=== PATIENT | male | born 1980 | race African-American/Black ===

== ENCOUNTER 2018-04-06 11:17 | Inpatient (IN) | payer MEDICARE, MEDICAID ==
[~2018-04-06] VITALS: Ht 182.9 cm; Wt 111.6 kg
[2018-04-06] MEDS ORDERED: NALOXONE HCL 1 MG/ML 2ML VIAL ONE (11:56)
[2018-04-06] MEDS ORDERED: SODIUM CHLORIDE 0.9% 1,000 ML IV ONE (12:00)
[2018-04-06] MEDS ORDERED: LEVETIRACETAM 1000MG/100ML 100 ML IV ONE (12:15)
[2018-04-06] MEDS ORDERED: LORAZEPAM 2MG/ML CPJ IV ONE (12:15)
[2018-04-06 12:35] LABS: CHLORIDE 106 mEq/L (98-107)
[2018-04-06 12:39] LABS: ETHANOL BLOOD < 10 mg/dL
[2018-04-06 12:49] LABS: BASOPHILS % 0.4 % (0.0-2.0); EOSINOPHILS % 7.1 % (0.0-5.0); HEMOGLOBIN. 13.4 g/dL (14.0-18.0); LYMPHOCYTES % 19.7 % (20.0-50.0); MEAN CORPUSCULAR HEMOGLOBIN 26.4 pg (28.0-32.0); MEAN PLATELET VOLUME 8.8 fl (7.4-10.4); MONOCYTES % 13.6 % (2.0-8.0); NEUTROPHILS % 59.2 % (40.0-76.0); PLATELET 302 x1000/uL (130-400); RED BLOOD CELL COUNT 5.06 mill/uL (4.7-6.1); RED CELL DISTRIBUTION WIDTH 15.8 % (11.6-14.6)
[2018-04-06] MEDS ORDERED: LACTULOSE 20G/30ML UDC PO ONE (14:00)
[2018-04-06 14:28] LABS: CLARITY URINE CLOUDY (CLEAR); COLOR URINE YELLOW (YELLOW); KETONES URINE TRACE (NEGATIVE); LEUKOCYTE ESTERASE URINE NEGATIVE (NEGATIVE); NITRITE URINE NEGATIVE (NEGATIVE); OCCULT BLOOD URINE 1+ (NEGATIVE); PROTEIN URINE 3+ (NEGATIVE); SPECIFIC GRAVITY URINE 1.016 (1.005-1.030)
[2018-04-06 15:00] LABS: *AMPHETAMINES SCREEN URINE PRESUMTIVE POSITIVE (NEGATIVE); *BARBITURATES SCREEN URINE NEGATIVE (NEGATIVE)
[2018-04-06 15:01] LABS: *BENZODIAZEPINES SCREEN URINE NEGATIVE (NEGATIVE); *COCAINE SCREEN URINE NEGATIVE (NEGATIVE); CANNABINOID URINE SCREEN PRESUMTIVE POSITIVE (NEGATIVE); METHADONE URINE SCREEN NEGATIVE (NEGATIVE); OPIATES URINE SCREEN NEGATIVE (NEGATIVE); PHENCYCLIDINE URINE SCREEN NEGATIVE (NEGATIVE)
[2018-04-06] MEDS ORDERED: GUAIFENESIN 200MG/10ML SUGAR FREE UDC PO PRN (16:15)
[2018-04-06] MEDS ORDERED: LORAZEPAM 2MG/ML CPJ IV PRN ×2 (16:15→18:45)
[2018-04-06] MEDS ORDERED: HYDROMORPHONE HCL/PF 2MG/ML CPJ IV PRN (16:15)
[2018-04-06] MEDS ORDERED: ACETAMINOPHEN 325MG TABLET PO PRN (16:15)
[2018-04-06] MEDS ORDERED: HYDROCODONE/ACETAMINOPHEN 5/325MG TABLET PO PRN (16:15)
[2018-04-06] MEDS ORDERED: DOCUSATE SODIUM 100MG CAPSULE PO PRN (16:15)
[2018-04-06] MEDS ORDERED: CLONIDINE 0.1MG TABLET PO PRN (16:15)
[2018-04-06] MEDS ORDERED: HYDRALAZINE 20MG/ML VIAL IV PRN (16:15)
[2018-04-06] MEDS ORDERED: DIPHENHYDRAMINE 50MG/ML VIAL IV PRN (16:15)
[2018-04-06] MEDS ORDERED: MAGNESIUM/ALUMINUM HYDROXIDE/SIMETHICONE 30ML UDC PO PRN (16:15)
[2018-04-06] MEDS ORDERED: ONDANSETRON HCL 4MG/2ML INJ IV PRN (16:15)
[2018-04-06] MEDS ORDERED: IPRATROPIUM/ALBUTEROL 0.5-3(2.5)MG/3ML NEB INH PRN (16:15)
[2018-04-06] MEDS ORDERED: NA PHOS,M-B/NA PHOS,DI-BA ENEMA 118ML PR PRN (16:15)
[2018-04-06] MEDS ORDERED: LORA-250 MT (17:33)
[2018-04-06] MEDS ORDERED: PHEN100C4 PO (17:33)
[2018-04-06] MEDS ORDERED: KEPP500 MT (17:33)
[2018-04-06] MEDS ORDERED: LAMC5 MT (17:33)
[2018-04-06] MEDS ORDERED: ELVI1TAB3 MT (17:35)
[2018-04-06 17:37] VITALS: BP 126/63
[2018-04-06 17:42] VITALS: BP 126/63
[2018-04-06] MEDS: DEXT 5%/0.45% NACL 1000ML 1,000 ML IV SCH (18:31)
[2018-04-06 20:00] VITALS: BP 118/58
[2018-04-06] MEDS ORDERED: POTASSIUM CHLORIDE 20MEQ TABLET SR PO NR (21:00)
[2018-04-06] MEDS: SODIUM CHLORIDE 0.9% INJ 3ML FLUSH IVF SCH (21:19)
[2018-04-06 22:00] VITALS: BP 151/72
[2018-04-07] VITALS (12 sets, daily range): BP systolic 114–139; BP diastolic 33–92
[2018-04-07 00:43] LABS: CREATINE KINASE 499 IU/L (39-308); CREATINE KINASE MB FRACTION 2.1 ng/mL (0.5-3.6)
[2018-04-07] MEDS: DEXT 5%/0.45% NACL 1000ML 1,000 ML IV SCH ×3 (02:15→23:05)
[2018-04-07 05:47] LABS: CHLORIDE 107 mEq/L (98-107)
[2018-04-07 05:55] LABS: CREATINE KINASE 457 IU/L (39-308)
[2018-04-07 05:58] LABS: CREATINE KINASE MB FRACTION 1.8 ng/mL (0.5-3.6)
[2018-04-07] MEDS: SODIUM CHLORIDE 0.9% INJ 3ML FLUSH IVF SCH ×3 (06:06→21:25)
[2018-04-07 06:18] LABS: BASOPHILS % 0.3 % (0.0-2.0); EOSINOPHILS % 8.6 % (0.0-5.0); HEMOGLOBIN. 11.6 g/dL (14.0-18.0); LYMPHOCYTES % 16.9 % (20.0-50.0); MEAN CORPUSCULAR HEMOGLOBIN 26.4 pg (28.0-32.0); MEAN CORPUSCULAR VOLUME 81.7 fL (80.0-94.0); MEAN PLATELET VOLUME 8.1 fl (7.4-10.4); MONOCYTES % 13.3 % (2.0-8.0); NEUTROPHILS % 60.9 % (40.0-76.0); PLATELET 255 x1000/uL (130-400); RED BLOOD CELL COUNT 4.41 mill/uL (4.7-6.1); RED CELL DISTRIBUTION WIDTH 15.2 % (11.6-14.6)
[2018-04-07] MEDS: LEVETIRACETAM 500MG TABLET PO SCH (21:25)
[2018-04-08] VITALS (10 sets, daily range): BP systolic 109–153; BP diastolic 64–84
[2018-04-08] MEDS: SODIUM CHLORIDE 0.9% INJ 3ML FLUSH IVF SCH ×2 (06:14→13:00)
[2018-04-08] MEDS: LEVETIRACETAM 500MG TABLET PO SCH (08:14)
[2018-04-08] MEDS: DEXT 5%/0.45% NACL 1000ML 1,000 ML IV SCH (08:14)
== END 2018-04-08 17:47 | disposition left against medical advice (07) | DRG 101 ==
LOC: ER 11:17 → 3WST 14:27 → EDBEDREQ 14:30 → EDBEDREQSVC 14:30 → ENRESERV 14:42
PROVIDERS: ADMIT Internal Medicine; ATTEND Internal Medicine
PROC: 4A00X4Z Measurement of Central Nervous Electrical Activity, External Approach (ICD-10-PCS; principal; 2018-04-08)
DX: G40.409 Other generalized epilepsy and epileptic syndromes, not intractable, without status epilepticus (principal); E46 Unspecified protein-calorie malnutrition; E86.0 Dehydration; Z53.21 Procedure and treatment not carried out due to patient leaving prior to being seen by health care provider; I10 Essential (primary) hypertension; F15.90 Other stimulant use, unspecified, uncomplicated; F16.90 Hallucinogen use, unspecified, uncomplicated; F12.90 Cannabis use, unspecified, uncomplicated; F17.210 Nicotine dependence, cigarettes, uncomplicated; Z91.041 Radiographic dye allergy status; Z68.33 Body mass index [BMI] 33.0-33.9, adult; Z79.899 Other long term (current) drug therapy
CPT/HCPCS: 36415; 71045; 80305; 82140; 82550; 82553; 84443; 84484; 93005; 96365; 96366; 96375; 99291; G0482; J1953; J2060; J2310; J7030; A4315